=== PATIENT | female | born 1945 | race Caucasian/White ===

== ENCOUNTER 2018-06-15 22:18 | Emergency (ER) | payer MEDICARE, SELFPAY ==
--- NOTE | 2018-06-15 22:28 | ED_ITS ---
HPI - General Adult General Chief complaint: Back Pain/Injury Stated complaint: KIDNEY STONES Time Seen by Provider: 06/15/18 22:28 Source: patient Mode of arrival: ambulatory Limitations: no limitations History of Present Illness HPI narrative: Patient is a 72-year-old female here for evaluation of left-sided flank pain. She states she has had kidney stones in the past and states this feels very similar to a prior history of kidney stones. Stated the symptoms were fairly sudden onset and occurred within the hour prior to arrival here in the ER. Has not tried anything for them. He is not having any fevers or urinary symptoms. She states she has passed all of her prior kidney stones Related Data Previous Rx's Medication Instructions Recorded hydrocodone-acetaminophen [[place]] 1 tab PO Q4-6H PRN #10 tab 06/16/18 ondansetron 4 mg PO Q6-8H PRN #10 tab 06/16/18 Allergies Allergy/AdvReac Type Severity Reaction Status Date / Time amoxicillin Allergy Unknown Verified 06/15/18 22:37 cefotetan Allergy Verified 06/15/18 22:37 clavulanic acid Allergy Verified 06/15/18 22:38 [From Augmentin] clindamycin Allergy Verified 06/15/18 22:38 Review of Systems Constitutional Denies fever(s) and Denies headache(s) ENT Ears, Nose, Mouth, and Throat: Denies headache(s) Cardiovascular Denies chest pain and Denies dyspnea Respiratory Denies dyspnea Gastrointestinal Gastrointestinal: Denies abdominal pain, Denies change in stool character, Reports nausea and Reports vomiting Genitourinary Denies dysuria and Reports flank pain Musculoskeletal Denies myalgias and Denies arthralgias Integumentary/Breasts Denies rash Neurologic Denies headache(s) Hematologic/Lymphatic Denies easy bleeding and Denies easy bruising Allergic/Immunologic Denies urticaria [facility] Medical History Kidney stones (Acute) Social History Smoking Status: Former smoker Social History Smoking Status: Former smoker Exam Initial Vital Signs Initial Vital Signs: Vital Signs Temperature 97 F L 06/15/18 22:32 Pulse Rate 80 06/15/18 22:32 Respiratory Rate 22 04/26/19 22:32 Blood Pressure 195/95 H 06/15/18 22:32 Pulse Oximetry 100 06/15/18 22:32 Const General: cooperative, well developed, well groomed and No acute distress Orientation: alert, awake and oriented x3 HENMT Head: normal to inspection and normocephalic Resp Effort & Inspection: normal respiratory effort Auscultation: clear to auscultation bilaterally Cardio Rate: regular rate Rhythm: regular rhythm GI Inspection: non-distended Palpation: soft, No firm and No tender Back/Spine/Pelvis Back: No CVA tenderness Skin Lesions: no lesions Rashes: no rashes Neuro General: alert, awake and oriented x3 Cognition: normal cognition Speech: speech normal Extrem General: normal to inspection and capillary refill normal Psych Appearance: grossly normal and well kempt Scores GCS Leia coma scale eye opening: Spontaneous Leia coma scale verbal response: Orientated [place] coma scale motor response: Obey commands Leia coma scale total score: 15 Course Orders Ordered: ED Orders 06/15/18 22:35 Basic Metabolic Panel Stat Complete Blood Count AUTO DIFF Stat 06/15/18 23:18 Urine Culture Stat Urine Microscopic Stat Discontinued Medications Hydrocodone Bitart/Acetaminophen (Vicodin Prepack) 1 bottle MISC SEEINSTR ONE Stop: 06/16/18 00:18 Last Admin: 06/16/18 00:24 Dose: 1 bottle Hydromorphone HCl (Dilaudid) 0.5 mg IV NOW ONE Stop: 06/15/18 22:38 Last Admin: 06/15/18 22:46 Dose: 0.5 mg Ketorolac Tromethamine (Toradol) 15 mg IV NOW ONE Stop: 06/15/18 22:38 Last Admin: 06/15/18 22:46 Dose: 15 mg Ondansetron HCl (Zofran) 4 mg IV NOW ONE Stop: 06/15/18 22:38 Last Admin: 06/15/18 22:47 Dose: 4 mg Ondansetron HCl (Zofran Odt Prepack) 1 bottle MISC SEEINSTR ONE Stop: 06/16/18 00:18 Last Admin: 06/16/18 00:24 Dose: 1 bottle Vital Signs - 8 hr 06/15/18 22:32 06/15/18 23:25 06/16/18 00:36 Temperature 97 F L Pulse Rate 80 67 62 Respiratory Rate 22 16 Blood Pressure 195/95 H 136/64 Blood Pressure [Right Arm] 154/80 H Pulse Oximetry 100 97 94 Medical Decision Making Lab Data Lab results reviewed: Yes I reviewed the patient's lab results. Result diagrams: 06/15/18 22:35 06/15/18 22:35 Lab Results 06/15/18 06/15/18 06/15/18 Range/Units 22:35 22:35 23:18 WBC 8.0 (4.5-11.0) X10^3/uL RBC 4.83 (4.0-5.2) X10^6/uL Hgb 12.9 (12.0-16.0) g/dL Hct 39.7 (36-46) % MCV 82.3 (80-100) fL MCH 26.7 (26-34) PG MCHC 32.4 (30-36) % RDW 15.4 H (11.6-14.8) % Plt Count 252 (150-400) X10^3/uL Neut % (Auto) 44.2 L (50-75) % Lymph % (Auto) 43.8 H (25-40) % [place] % (Auto) 7.4 (3-14) % Eos % (Auto) 4.0 (2-4) % Baso % (Auto) 0.6 (0-2) % Neut # (Auto) 3500 (3163-0169) /uL Lymph # (Auto) 3500 (6273-4616) /uL [place] # (Auto) 600 (0-900) /uL Eos # (Auto) 300 (0-450) /uL Baso # (Auto) 0 (0-100) /uL Sodium 142 (137-145) mmol/L Potassium 4.1 (3.4-5.1) mmol/L Chloride 105 (98-107) mmol/L Carbon Dioxide 26 (22-32) mmol/L BUN 27 H (7-17) mg/dL Creatinine 0.90 (0.52-1.04) mg/dL Estimated GFR > 60.0 (>60) mL/min BUN/Creatinine Ratio 30.0 H (6-22) Glucose 107 (80-110) mg/dL Calcium 10.3 H (8.4-10.2) mg/dL Urine RBC 1-5/hpf (0-5/HPF) Urine WBC 1-5/hpf (0-5/HPF) Urine Bacteria Occasional (0-1) (None) Ur Culture Indicated? Specimen cultured Urine Dip Bedside Urine Glucose Negative Bedside Urine Bilirubin - Negative Bedside Urine Ketone - Negative Urine Specific [place] 1.025 Bedside Urine Occult Blood + Bedside Urine pH 6.0 Bedside Urine Protein +/- 15 Bedside Urine Nitrite - Negative Bedside Urine Leukocytes +/- 15 Esterase Point of care testing: Urine Dip Bedside Urine Glucose Negative Bedside Urine Bilirubin - Negative Bedside Urine Ketone - Negative Urine Specific [place] 1.025 Bedside Urine Occult Blood + Bedside Urine pH 6.0 Bedside Urine Protein +/- 15 Bedside Urine Nitrite - Negative Bedside Urine Leukocytes +/- 15 Esterase MDM Narrative Medical decision making narrative: Urine shows no signs of infection. Patient is not have any elevation in her creatinine. Her history and physical exam were consistent with kidney stones. She states she has had multiple kidney stones in the past and this feels very much like prior kidney stones. She felt better after the medication here in the ER. Since she has had multiple stones in the past and has passed all of them on her own we will hold on a CT scan for now. Patient is okay with this. Her is at bedside also agrees with this. Will send home with symptomatic treatment. She was given return precautions and follow-up instructions. She expressed understanding and agreement with plan. Discharge Plan Departure Patient Disposition: Home Clinical Impression: Renal colic Discharge Date/Time: 06/16/18 00:31 Interventions: ED Discharge Assessment Last Done: 06/16/18 00:36 Instructions: DI for Kidney Stones Activity Restrictions/Additional Instructions: Take all the medications as needed. Return to the emergency department for new symptoms, inability to urinate, worsening pain, fevers, or any other concerning symptoms. Prescriptions: New hydrocodone-acetaminophen [[place]] 5-325 mg tablet 1 tab PO Q4-6H PRN (Reason: pain) Qty: 10 RF: 0 ondansetron 4 mg tablet,disintegrating 4 mg PO Q6-8H PRN (Reason: nausea and vomiting) Qty: 10 RF: 0
[2018-06-15 22:32] VITALS: BP 195/95; PULSE 80; RESP 22; TEMP 36.1; O2SAT 100; BMI 29.9
[2018-06-15] MEDS: KETOROLAC 60 MG/2 ML VIAL 15 MG IV (22:46)
[2018-06-15] MEDS: HYDROMORPHONE 1 MG INJ 0.5 MG IV (22:46)
[2018-06-15 22:47] LABS: Add Manual Diff / Slide Review NO; Basophils Absolute Auto 0 /uL (0-100); Basophils Percent Auto 0.6 % (0-2); Eosinophils Absolute Auto 300 /uL (0-450); Hematocrit 39.7 % (36-46); Hemoglobin 12.9 g/dL (12.0-16.0); Lymphocytes Absolute Auto 3500 /uL (1100-4500); Lymphocytes Percent Auto 43.8 % (25-40); Mean Corpuscular HGB Conc 32.4 % (30-36); Mean Corpuscular Hemoglobin 26.7 PG (26-34); Mean Corpuscular Volume 82.3 fL (80-100); Monocytes Absolute Auto 600 /uL (0-900); Monocytes Percent Auto 7.4 % (3-14); Neutrophils Absolute Auto 3500 /uL (1500-7000); Neutrophils Percent Auto 44.2 % (50-75); Platelet Count 252 X10^3/uL (150-400); Red Blood Cell Count 4.83 X10^6/uL (4.0-5.2); Red Cell Distribution Width 15.4 % (11.6-14.8)
[2018-06-15] MEDS: ONDANSETRON 4 MG/2 ML INJ IV (22:47)
[2018-06-15 22:58] LABS: Blood Urea Nitrogen 27 mg/dL (7-17); Calcium 10.3 mg/dL (8.4-10.2); Carbon Dioxide 26 mmol/L (22-32); Chloride 105 mmol/L (98-107); Estimated Glomerular Filt Rate > 60.0 mL/min (>60); Glucose 107 mg/dL (80-110); HEMOLYSIS < 15 (0-50); Potassium 4.1 mmol/L (3.4-5.1); Sodium 142 mmol/L (137-145)
[2018-06-15 23:25] VITALS: BP 154/80; PULSE 67; O2SAT 97
[2018-06-15 23:57] LABS: Bacteria Urine Occasional (0-1); Culture Indicated Urine Specimen Cultured; RBC Urine 1-5/HPF (0-5/HPF); WBC Urine 1-5/HPF (0-5/HPF)
[2018-06-16] MEDS: HYDROCODONE/ACET 5/325 PREPACK 1 BOTTLE MISC (00:24)
[2018-06-16] MEDS: ONDANSETRON 4 MG ODT PREPACK 1 BOTTLE MISC (00:24)
[2018-06-16 00:36] VITALS: BP 136/64; PULSE 62; RESP 16; O2SAT 94
== END 2018-06-16 00:31 | disposition home or self-care (01) ==
PROVIDERS: Emergency Provider Emergency Medicine
DX: N23 Unspecified renal colic (principal)
CPT/HCPCS: 36591; 80048; 81003; 81015; 85025; 87086; 96374; 96375; 99283; 99284; J1170; J1885; J2405

== ENCOUNTER → 2019-04-30 16:08 | Outpatient (CLI) | payer MEDICARE, SELFPAY ==
--- NOTE | 2019-04-30 | DI.MG.S_ITS ---
BILATERAL DIGITAL SCREENING MAMMOGRAM 3D/2D WITH CAD: 04/30/2019 CLINICAL: Routine screening. Family history of breast cancer. Comparison is made to exams dated: 01/03/2017 mammogram and 12/15/2015 mammogram - [facility]. There are scattered fibroglandular elements in both breasts. Current study was also evaluated with a Computer Aided Detection (CAD) system. No significant masses, calcifications, or other findings are seen in either breast. There has been no significant interval change. IMPRESSION: NEGATIVE There is no mammographic evidence of malignancy. A 1 year screening mammogram is recommended. This exam was interpreted at Station ID: [id number]. NOTE: For mammograms, a report in lay terms will be sent to the patient. Approximately 15% of breast malignancies will not be visualized mammographically. In the management of a palpable breast mass, a negative mammogram must not discourage biopsy of a clinically suspicious lesion. Electronically Signed By: Trudy bender/tia:04/30/2019 17:22:45 letter sent: Normal Exam ACR BI-RADS Category 1: Negative 3341F
== END ==
PROVIDERS: Referring Provider Nurse Practitioner; Visit Provider Nurse Practitioner
DX: Z12.31 Encounter for screening mammogram for malignant neoplasm of breast (principal); Z80.3 Family history of malignant neoplasm of breast
CPT/HCPCS: 77063; 77067

== ENCOUNTER → 2020-05-01 09:40 | Outpatient (CLI) | payer MEDICARE, SELFPAY ==
--- NOTE | 2020-05-01 | DI.MG.S_ITS ---
BILATERAL DIGITAL SCREENING MAMMOGRAM 3D/2D WITH CAD: 05/01/2020 CLINICAL: Routine screening. Family history of breast cancer. Comparison is made to exams dated: 04/30/2019 mammogram - [facility], 01/03/2017 mammogram, and 12/15/2015 mammogram - [facility]. There are scattered fibroglandular elements in both breasts. Current study was also evaluated with a Computer Aided Detection (CAD) system. There are mole markers on both breasts. No significant masses, calcifications, or other findings are seen in either breast. There has been no significant interval change. IMPRESSION: NEGATIVE There is no mammographic evidence of malignancy. A 1 year screening mammogram is recommended. This exam was interpreted at Station ID: [id number]. NOTE: For mammograms, a report in lay terms will be sent to the patient. Approximately 15% of breast malignancies will not be visualized mammographically. In the management of a palpable breast mass, a negative mammogram must not discourage biopsy of a clinically suspicious lesion. Electronically Signed By: Tez Diamond acr/penrad:05/19/2020 08:32:08 letter sent: Normal Exam ACR BI-RADS Category 1: Negative 3341F
== END ==
PROVIDERS: PCP Family Medicine; Referring Provider Family Medicine; Visit Provider Family Medicine
DX: Z12.31 Encounter for screening mammogram for malignant neoplasm of breast (principal); Z80.3 Family history of malignant neoplasm of breast
CPT/HCPCS: 77063; 77067

== ENCOUNTER → 2021-09-27 08:46 | Outpatient (CLI) | payer MEDICARE, SELFPAY ==
--- NOTE | 2021-09-27 | DI.RAD.S_ITS ---
PROCEDURE: FL BARIUM SWALLOW W SPEECH INDICATIONS: COUGH COMPARISON: None. TECHNIQUE: Examination was conducted in conjunction with speech pathology per standard protocol. In the lateral projection, filming was performed of the patient swallowing. AP projection filming may also be performed with patient swallowing. COMPARISON: None FINDINGS: The oral preparatory phase appears normal, with proper containment. The subsequent oral propulsive phase and pharyngeal phase within normal limits for age. Ilum-ur-fzspqihp degree of partially visualized esophageal dysmotility. Mild pooling following swallowing in the piriform sinuses and vallecula. There is a small Zenker's diverticulum. Prominent CP bar. No strictures. IMPRESSION: Small Zenker's diverticulum. Prominent CP bar. Partially visualized mild to moderate esophageal dysmotility. Small residual in the piriform sinuses and vallecula. Please see speech pathology note for further details. Dictated by: Jensen Chao M.D. on 09/27/2021 at 13:06 Approved by: Jensen Chao M.D. on 09/27/2021 at 13:12
--- NOTE | 2021-09-27 15:51 | ST.SWALLOW ---
Visit Care Team Role Provider Type Franky Goldberg MD Attending Provider Non-Staff Primary Care Provider Referring Provider Specialty: Family Practice Address: [address] [place] [address], [id number] Email: ST Modified Barium Swallow Study [employer] Modified Barium Swallow Study Start: 09/27/21 15:21 Freq: Status: Active Protocol: Document 09/27/21 15:22 LNK (Rec: 09/27/21 15:50 LNK [id number]) Modified Barium Swallow Study Total Time Visit Start Time 10:30 Visit Stop Time 11:25 Total Visit Minutes [address] Goldberg Reason for Referral dysphagia Setting Setting Outpatient Care Patient Information Identification Type Name,Address Patient History Pt was seen for a Modified Barium Swallow Study secondary to claims of frequent coughing while eating and discomfort in her chest are when she eats. She described the discomfort as something getting stuck and needing to wait until it eventually passes to the stomach. relative to the coughing she describes a sensation inside her throat that frequently occurs during meals that causes her to cough . She state that this sensation in on the right side only. Subjective Observations pt was seated in the fluoroscopy golden. Directions and procedures were described. Pt agreed to proceed. Patient Positioning Position View Lat-A/P Imaging Lateral View Textures Administered Trials Presented Thin Liquid via Spoon,Thin Liquid via Cup,[place] Liquid via Cup,Pudding Thick Liquid via Spoon,Regular Textures, Barium Tablet Oral Phase Source: MBSIMP (TM) (C) Bolus Specific Scoring Grid Lip Closure No Impairment (WNL) Tongue Control During Bolus Hold No Impairment (WNL) Bolus Prep/Mastication WFL Bolus Transport/Lingual Motion No Impairment (WNL) A/P Lingual Propulsion Delay No Oral Residue No Impairment (WNL) Nasal Regurgitation No Additional Oral Phase Observations Lower molars were missing. Otherwise dentition was adequate. OMe was observed to be WNL Oral phase of swallowing was wfl. 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 Pharyngeal Phase Source: MBSIMP (TM) (C) Bolus Specific Scoring Grid Delayed Initiation of Pharyngeal Swallow No Soft Palate Elevation No Impairment (WNL) Tongue Base Strength/Range of Motion No Impairment (WNL) Residue Along the Tongue Base No Laryngeal Elevation WFL Anterior Hyoid Movement WFL Epiglottic Range of Motion WFL Vallecular Residue No Laryngeal Vestibular Closure No Impairment (WNL) Pharyngeal Stripping Wave No Impairment (WNL) Posterior Pharyngeal Wall Residue No Upper Esophageal Sphincter Opening WFL Residue in the Pyriform Sinuses No Esophageal Clearance Upright Position Mild Impairment Pharyngoesophageal Backflow Observed No Additional Pharyngeal Phase Observations Pharyngeal phase of swallow was observed to be WFL A/P View Textures Administered Trials Presented Thin Liquid via Cup,[place] Liquid via Cup,Barium Tablet A/P View Observations Vocal Fold Function Good Esophageal Function Slowed Clearing Esophageal Clearance Upright Position Minimal Impairment Additional Observations A small diverticulun was observed proximal to the UES. Th esophagus was slow to empty ; however the the esophageal contents eventually cleared into the stomach without observed strictures or cessation of flow. Clinical Impressions Dysphagia Type no dysphagia observed Patient Appropriate for Therapy No Recommendations Diet Comments No change in diet Aspiration Precautions Recommended Precautions Alternate Liquids/Solids Treatment Plan Recommended Referrals GI Consult Compensatory Strategies Recommendations Alternate Liquids/Solids
== END ==
PROVIDERS: PCP Family Medicine; Referring Provider Family Medicine; Visit Provider Family Medicine
DX: K22.4 Dyskinesia of esophagus; K22.5 Diverticulum of esophagus, acquired; R05.9 Cough, unspecified; R09.89 Other specified symptoms and signs involving the circulatory and respiratory systems
CPT/HCPCS: 74230; 92611